=== PATIENT | male | born 1970 | race Caucasian/White ===

== ENCOUNTER 2016-11-15 17:36 | Emergency (ER) | payer BC ==
[~2016-11-15] VITALS: Ht 180.3 cm; Wt 81.8 kg
[~2016-11-15 17:36] MED LIST: CENTRUM1 TAB PO; FERROUS SU325 MG/TAB PO; IBUPROFEN600 MG PO
[2016-11-15 17:39] VITALS: TEMP 97.9
[2016-11-15 18:22] LABS: BASO % 0.5 % (0.0-2.0); EOS # 0.1 (0.0-0.7); EOS % 1.4 % (0-4.0); GRAN # 3.8 (1.4-6.5); GRAN % 60.3 % (42.2-75.2); LYMPH # 1.8 (1.2-3.4); LYMPH % 28.2 % (20.0-51.0); MEAN CELL VOLUME 91 fl (80.0-100.0); MEAN CORPUSCULAR HEMOGLOBIN 33 pg (27.0-31.0); MEAN CORPUSCULAR HGB CONC 36 g/dl (33.0-37.0); MEAN PLATELET VOLUME 9.9 fl (7.4-10.4); MONO # 0.6 (0.1-0.6); MONO % 9.3 % (1.7-9.3); PLATELET COUNT 142 K/mm3 (130-400); RED BLOOD COUNT 3.95 M/mm3 (4.20-5.60); REDCELL DISTRIBUTION WIDTH-CV 11.8 % (11.5-14.5); WHITE BLOOD COUNT 6.3 K/mm3 (4.8-10.8)
[2016-11-15 18:23] LABS: HEMATOCRIT 36.1 % (42.0-52.0)
[2016-11-15 18:35] LABS: ADJUSTED CALCIUM 9.2 mg/dL (8.4-10.2); ALANINE AMINOTRANSFERASE 30 U/L (21-72); ALBUMIN 4.1 gm/dL (3.5-5.0); ALKALINE PHOSPHATASE 54 U/L (50-136); ANION GAP 10 mmol/L (7-16); BILIRUBIN,TOTAL 0.9 mg/dL (0.0-1.0); BLOOD UREA NITROGEN 18 mg/dL (9-20); CALCIUM 9.3 mg/dL (8.4-10.2); CARBON DIOXIDE 30 mmol/L (22-30); CHLORIDE 100 mmol/L (98-107); CREATININE, serum 1.04 mg/dL (0.66-1.25); GLUCOSE 90 mg/dL (74-106); LIPASE 102 U/L (23-300); POTASSIUM 4.1 mmol/L (3.4-5.0); SODIUM 140 mmol/L (137-145); TOTAL PROTEIN 6.7 gm/dL (6.4-8.2)
[2016-11-15 18:39] LABS: C-REACTIVE PROTEIN < 0.5 mg/dL (0.0-0.9)
[2016-11-15 19:04] LABS: TROPONIN-I < 0.012 ng/mL (0.000-0.034)
[2016-11-15 19:31] VITALS: BP 130/93; PULSE 56
== END 2016-11-15 19:32 | disposition home or self-care (01) ==
LOC: COL.ER 17:36
PROVIDERS: Emergency Medicine
DX: R07.89 Other chest pain (principal)

== ENCOUNTER → 2023-11-09 | Day surgery (SDC) | payer BC ==
[~2023-11-09] VITALS: Ht 180.3 cm; Wt 80.0 kg
[~2023-11-09] MED LIST changes: +ADVIL200 MG PO; +BACTRIM DS 8001 TAB PO; +CEPHALEXIN500 M1 PO; +LR 1,000 ML IV SCH; +MOTRIN 600600 MG/TAB PO; +NORCO 325 MG-51 TAB PO; +Ondansetron 4 MG/2 ML VIAL IV PRN; +TORADOL 10MG TA10 MG PO; +ePHEDrine 50 MG/ML VIAL ONE
[2023-11-09 06:17] VITALS: BP 116/78; PULSE 52; TEMP 97.5
[2023-11-09 07:58] VITALS: BP 111/70; PULSE 58; TEMP 98.5
[2023-11-09 08:15] VITALS: BP 115/96; PULSE 57; TEMP 98.5
[2023-11-09 08:23] VITALS: BP 124/86; PULSE 58
--- NOTE | 2023-11-09 08:24 | NUR ---
0758 Pt ambulated from cart to chair with standby assit - no complications 0802 pt tolerating water and muffin without difficulty 0816 MD Cadence in room 0818 Pt verbalizes understanding of discharge instructions 0826 pt escorted out to vehicle via wheelchair
== END ==
LOC: SDCO 05:56
DX: K92.1 Melena (principal); K57.30 Diverticulosis of large intestine without perforation or abscess without bleeding; K64.2 Third degree hemorrhoids; K64.4 Residual hemorrhoidal skin tags; Z87.19 Personal history of other diseases of the digestive system; Z79.1 Long term (current) use of non-steroidal anti-inflammatories (NSAID)
CPT/HCPCS: J2704; J7120

== ENCOUNTER 2023-11-12 06:42 | Day surgery (SDC) | payer BC ==
[~2023-11-12] VITALS: Ht 180.3 cm; Wt 80.4 kg
[~2023-11-12 06:42] MED LIST changes: -MOTRIN 600600 MG/TAB PO; -NORCO 325 MG-51 TAB PO; -Ondansetron 4 MG/2 ML VIAL IV PRN; -ePHEDrine 50 MG/ML VIAL ONE
[2023-11-12 07:13] VITALS: BP 107/73; PULSE 45; TEMP 97.7
--- NOTE | 2023-11-12 07:19 | NUR ---
Pt arrived with for surgery; VSS and WNL, RR even and unlabored; consents reviewed and signed, no questions or concerns; reviewed meds/pharm/history/allergies; IV to LFA without incident, LR hanging; to await procedure.
[2023-11-12] MEDS ORDERED: Lidocaine PF 2% (20 MG/ML) 5 ML VIAL ONE (07:59)
[2023-11-12] MEDS ORDERED: Ondansetron 4 MG/2 ML VIAL ONE (07:59)
[2023-11-12] MEDS ORDERED: Ketorolac 30 MG/ML VIAL ONE (07:59)
[2023-11-12] MEDS ORDERED: fentaNYL 50 MCG/ML 5 ML VIAL ONE (08:00)
[2023-11-12] MEDS ORDERED: Rocuronium 50 MG/5 ML Multi-Dose VIAL ONE (08:00)
[2023-11-12] MEDS ORDERED: fentaNYL 50 MCG/ML 1 ML SYRINGE/VIAL [PACU/SDC ONLY] IV PRN (09:00)
[2023-11-12] MEDS ORDERED: Ondansetron 4 MG/2 ML VIAL IV PRN ×2 (09:00→10:30)
[2023-11-12] MEDS ORDERED: HYDROmorphone 1 MG/1 ML SYRINGE [PACU/SDC ONLY] IV PRN (09:00)
[2023-11-12] MEDS ORDERED: Topical Skin Adhesive 1 EACH (1 ML) TOP ONE (09:05)
[2023-11-12] MEDS ORDERED: MOTRIN 600600 MG/TAB PO (10:17)
[2023-11-12] MEDS ORDERED: NORCO 325 MG-51 TAB PO (10:17)
[2023-11-12] MEDS ORDERED: Ibuprofen 600 MG TAB PO PRN (10:30)
[2023-11-12] MEDS ORDERED: Morphine 4 MG/ML VIAL IV PRN (10:30)
[2023-11-12 10:54] VITALS: BP 127/84; PULSE 48; TEMP 97.2
[2023-11-12 11:00] VITALS: BP 128/82; PULSE 47
[2023-11-12 11:15] VITALS: BP 134/87; PULSE 47
[2023-11-12 11:30] VITALS: BP 127/76; PULSE 48
--- NOTE | 2023-11-12 12:20 | NUR ---
1045 Received report from CAROL FUNES RN, PACU. 1054 Patient returned to [facility]. Patient is alert and answers questions appropriately.Breathing even and unlbored on 2 L O2 via NC. 1115 Patient given apple juice and a muffin for a PO challenge. Tolerated well. 1144 Physician discharge instructions and printed patient educational materials reviewed with the patient and his . Questions invited and answered. Patient reports that he urinated with out difficulty. 1155 Patient to lobby via wheelchair for a ride home with in POV.
== END 2023-11-12 11:55 | disposition home or self-care (01) ==
LOC: SDCO 06:42
DX: K40.90 Unilateral inguinal hernia, without obstruction or gangrene, not specified as recurrent (principal); K64.9 Unspecified hemorrhoids
CPT/HCPCS: C1781; J0690; J1885; J2405; J2704; J3010; J7120

== ENCOUNTER → 2024-04-22 | Outpatient (CLI) | payer OTHER ==
[~2024-04-22] MED LIST changes: -LR 1,000 ML IV SCH; +MOTRIN 600600 MG/TAB PO; +NORCO 325 MG-51 TAB PO
== END ==
LOC: MHCPAIN 08:08
DX: G57.81 Other specified mononeuropathies of right lower limb (principal); R10.30 Lower abdominal pain, unspecified; Z98.890 Other specified postprocedural states
CPT/HCPCS: G0463